=== PATIENT | female | born 1950 | race African-American/Black ===

== ENCOUNTER 2016-08-17 01:10 | Inpatient (IN) | payer MEDICARE, MEDICAID ==
[~2016-08-17] VITALS: Ht 162.6 cm; Wt 112.0 kg
[~2016-08-17 01:10] MED LIST: AMLO10TA80 PO; ANAS1TAB7 PO; ASPI-1159 PO; ATOR20TA PO; ATOR20TA65 PO; BENA40TA3 PO; BUDE6HFA IH; CALC-30 PO; CHOL500010 PO; CINN500C5 PO; CLON0.2T PO; CYAN100086 IM; CYCL30DR EACHEYE; DOCU-150 PO; DOXA2TAB2 PO; FLUT16SP15 NS; GLIP5TAB12 PO; HYDR12.54 PO; HYDR25SU11 RC; LACT10SO PO; LISI1TAB11 PO; LORA10TA7 PO; MECL12.584 PO; METF500T4 PO; MONT10TA24 PO; MULT-1146 PO; OMEG10002 PO; OMEP20CA10 PO; P20 PO; PAZEO OP; PREG50CA PO; PROM6.25 PO; SIMV20TA6 PO; TRAM50TA3 PO
[2016-08-17] MEDS ORDERED: SODIUM CHLORIDE 0.9% 1,000 ML IV ONE (03:21)
[2016-08-17 03:44] LABS: HEMATOCRIT. 36.9 % (36.0-48.0); HEMOGLOBIN. 11.9 g/dL (12.0-16.0); MEAN CORPUSCULAR HEMOGLOBIN 28.6 pg (28.0-32.0); MEAN PLATELET VOLUME 8.7 fl (7.4-10.4); PLATELET 278 x1000/uL (130-400); RED BLOOD CELL COUNT 4.15 mill/uL (4.2-5.4); RED CELL DISTRIBUTION WIDTH 15.9 % (11.6-14.6)
[2016-08-17 03:50] LABS: INR 1.1; PROTHROMBIN TIME 11.7 sec
[2016-08-17 04:00] LABS: CARBON DIOXIDE 31 mEq/L (21-32); CHLORIDE 95 mEq/L (98-107); TROPONIN I < 0.02 ng/mL (0.00-0.04)
[2016-08-17 04:01] LABS: PLATELET ESTIMATE NORMAL
[2016-08-17 08:00] VITALS: BP 64/30
[2016-08-17] MEDS ORDERED: IPRATROPIUM/ALBUTEROL 0.5-3(2.5)MG/3ML NEB HHN PRN (09:45)
[2016-08-17] MEDS: SODIUM CHLORIDE 0.9% 1,000 ML IV SCH ×2 (10:18→18:05)
[2016-08-17] MEDS: PANTOPRAZOLE SODIUM 40 MG/VIAL IV SCH (10:36)
[2016-08-17 11:00] VITALS: BP 109/58
[2016-08-17] MEDS: ONDANSETRON HCL 4MG/2ML VIAL IV PRN (11:45)
[2016-08-17 12:00] VITALS: BP 115/56
[2016-08-17 16:00] VITALS: BP 83/62
[2016-08-17] MEDS: MONTELUKAST SODIUM 10MG TABLET PO SCH (18:04)
[2016-08-17 18:20] LABS: PHOSPHORUS 4.7 mg/dL (2.5-4.9)
[2016-08-17 20:00] VITALS: BP 83/46
[2016-08-17 22:00] VITALS: BP 94/49
[2016-08-18] VITALS: BP 103/59
[2016-08-18 04:00] VITALS: BP 101/62
[2016-08-18 05:38] LABS: BASOPHILS % 1.1 % (0.0-2.0); EOSINOPHILS % 4.6 % (0.0-5.0); HEMATOCRIT. 31.7 % (36.0-48.0); HEMOGLOBIN. 10.1 g/dL (12.0-16.0); LYMPHOCYTES % 39.2 % (20.0-50.0); MEAN CORPUSCULAR HEMOGLOBIN 28.7 pg (28.0-32.0); MEAN CORPUSCULAR VOLUME 90.1 fL (81.0-99.0); MEAN PLATELET VOLUME 8.7 fl (7.4-10.4); MONOCYTES % 10.4 % (2.0-8.0); NEUTROPHILS % 44.7 % (40.0-76.0); PLATELET 242 x1000/uL (130-400); RED BLOOD CELL COUNT 3.52 mill/uL (4.2-5.4); RED CELL DISTRIBUTION WIDTH 16.2 % (11.6-14.6)
[2016-08-18] MEDS: SODIUM CHLORIDE 0.9% 1,000 ML IV SCH ×3 (06:42→16:59)
[2016-08-18] MEDS ORDERED: DEXTROSE 50% WATER 50ML SYRINGE IV PRN (07:30)
[2016-08-18] MEDS: INSULIN LISPRO 100 UNITS/ML SUBCUT SCH ×4 (07:40→21:45)
[2016-08-18] MEDS: BLOOD SUGAR DIAGNOSTIC STRIP TEST SCH ×3 (07:40→20:43)
[2016-08-18 08:00] VITALS: BP 108/62
[2016-08-18] MEDS: ONDANSETRON HCL 4MG/2ML VIAL IV PRN ×2 (08:38→21:52)
[2016-08-18] MEDS: PANTOPRAZOLE SODIUM 40 MG/VIAL IV SCH (08:38)
[2016-08-18] MEDS: ASPIRIN 81MG EC TABLET PO SCH (08:39)
[2016-08-18 08:49] LABS: CARBON DIOXIDE 29 mEq/L (21-32)
[2016-08-18 08:54] LABS: CHLORIDE 108 mEq/L (98-107)
[2016-08-18 12:00] VITALS: BP 101/59
[2016-08-18] MEDS: MEGESTROL ACETATE 400 MG/10 ML UDC PO SCH (14:54)
[2016-08-18 16:00] VITALS: BP 115/69
[2016-08-18] MEDS: MONTELUKAST SODIUM 10MG TABLET PO SCH (16:51)
[2016-08-18 20:00] VITALS: BP 98/50
[2016-08-18] MEDS: ACETAMINOPHEN 325MG TABLET PO PRN ×2 (21:44→22:09)
[2016-08-19] VITALS: BP 111/58
[2016-08-19] MEDS: SODIUM CHLORIDE 0.9% 1,000 ML IV SCH ×3 (01:31→19:57)
[2016-08-19 04:00] VITALS: BP 109/62
[2016-08-19] MEDS: BLOOD SUGAR DIAGNOSTIC STRIP TEST SCH ×4 (05:57→20:36)
[2016-08-19] MEDS: INSULIN LISPRO 100 UNITS/ML SUBCUT SCH ×4 (05:57→20:36)
[2016-08-19] MEDS: PANTOPRAZOLE SODIUM 40 MG/VIAL IV SCH (08:41)
[2016-08-19] MEDS: MEGESTROL ACETATE 400 MG/10 ML UDC PO SCH (08:41)
[2016-08-19] MEDS: ASPIRIN 81MG EC TABLET PO SCH (08:41)
[2016-08-19] MEDS: ONDANSETRON HCL 4MG/2ML VIAL IV PRN (08:41)
[2016-08-19 12:00] VITALS: BP 109/71
[2016-08-19 16:00] VITALS: BP 122/92
[2016-08-19] MEDS: MONTELUKAST SODIUM 10MG TABLET PO SCH (17:59)
[2016-08-19 20:00] VITALS: BP 106/60
[2016-08-20 00:09] VITALS: BP 100/61
[2016-08-20 04:00] VITALS: BP 111/75
[2016-08-20] MEDS: SODIUM CHLORIDE 0.9% 1,000 ML IV SCH ×2 (04:31→13:04)
[2016-08-20] MEDS: BLOOD SUGAR DIAGNOSTIC STRIP TEST SCH ×5 (06:26→20:32)
[2016-08-20] MEDS: INSULIN LISPRO 100 UNITS/ML SUBCUT SCH ×4 (06:49→20:32)
[2016-08-20 08:00] VITALS: BP 100/59
[2016-08-20] MEDS: PANTOPRAZOLE SODIUM 40 MG/VIAL IV SCH (09:03)
[2016-08-20] MEDS: ONDANSETRON HCL 4MG/2ML VIAL IV PRN ×2 (09:03→15:07)
[2016-08-20] MEDS: MEGESTROL ACETATE 400 MG/10 ML UDC PO SCH (09:03)
[2016-08-20] MEDS: ASPIRIN 81MG EC TABLET PO SCH (09:03)
[2016-08-20 12:00] VITALS: BP 124/72
[2016-08-20] MEDS: DEXT 5%/0.45% NACL 1000ML 1,000 ML IV SCH (15:01)
[2016-08-20 16:00] VITALS: BP 104/66
[2016-08-20] MEDS: MONTELUKAST SODIUM 10MG TABLET PO SCH (16:56)
[2016-08-20 20:00] VITALS: BP 100/66
[2016-08-21] VITALS: BP 120/80
[2016-08-21 04:00] VITALS: BP 102/61
[2016-08-21] MEDS: INSULIN LISPRO 100 UNITS/ML SUBCUT SCH ×4 (06:49→21:33)
[2016-08-21] MEDS: BLOOD SUGAR DIAGNOSTIC STRIP TEST SCH ×4 (06:49→21:31)
[2016-08-21 07:09] LABS: BASOPHILS % 1.8 % (0.0-2.0); EOSINOPHILS % 4.2 % (0.0-5.0); HEMATOCRIT. 32.2 % (36.0-48.0); HEMOGLOBIN. 10.3 g/dL (12.0-16.0); LYMPHOCYTES % 39.3 % (20.0-50.0); MEAN CORPUSCULAR HEMOGLOBIN 28.6 pg (28.0-32.0); MONOCYTES % 8.1 % (2.0-8.0); NEUTROPHILS % 46.6 % (40.0-76.0); PLATELET 290 x1000/uL (130-400); RED BLOOD CELL COUNT 3.62 mill/uL (4.2-5.4); RED CELL DISTRIBUTION WIDTH 16.1 % (11.6-14.6)
[2016-08-21 08:00] VITALS: BP 104/64
[2016-08-21 08:11] LABS: CARBON DIOXIDE 26 mEq/L (21-32); CHLORIDE 110 mEq/L (98-107); PHOSPHORUS 2.5 mg/dL (2.5-4.9)
[2016-08-21] MEDS: PANTOPRAZOLE SODIUM 40 MG/VIAL IV SCH (08:17)
[2016-08-21] MEDS: MEGESTROL ACETATE 400 MG/10 ML UDC PO SCH (08:17)
[2016-08-21] MEDS: ONDANSETRON HCL 4MG/2ML VIAL IV PRN (08:18)
[2016-08-21] MEDS: ASPIRIN 81MG EC TABLET PO SCH (08:18)
[2016-08-21] MEDS ORDERED: POTASSIUM CHLORIDE 20MEQ TABLET SR PO NR ×2 (08:45→15:45)
[2016-08-21 08:55] LABS: CLARITY URINE CLEAR (CLEAR); COLOR URINE YELLOW (YELLOW); GLUCOSE URINE NEGATIVE (NEGATIVE); KETONES URINE NEGATIVE (NEGATIVE); LEUKOCYTE ESTERASE URINE NEGATIVE (NEGATIVE); NITRITE URINE NEGATIVE (NEGATIVE); OCCULT BLOOD URINE NEGATIVE (NEGATIVE); PROTEIN URINE NEGATIVE (NEGATIVE); SPECIFIC GRAVITY URINE 1.006 (1.005-1.030)
[2016-08-21] MEDS ORDERED: MAGNESIUM SULFATE 3 GM in DEXT 5% WATER 96 ML IV NR ×2 (09:00→10:00)
[2016-08-21 12:00] VITALS: BP 98/62
[2016-08-21 15:53] VITALS: BP 120/86
[2016-08-21] MEDS: MONTELUKAST SODIUM 10MG TABLET PO SCH (18:12)
[2016-08-21] MEDS: DEXT 5%/0.45% NACL 1000ML 1,000 ML IV SCH (19:51)
[2016-08-21 20:00] VITALS: BP 100/62
[2016-08-22] VITALS (7 sets, daily range): BP systolic 101–119; BP diastolic 60–75
[2016-08-22] MEDS: BLOOD SUGAR DIAGNOSTIC STRIP TEST SCH ×3 (06:25→17:59)
[2016-08-22] MEDS: INSULIN LISPRO 100 UNITS/ML SUBCUT SCH ×3 (06:28→17:40)
[2016-08-22 07:45] LABS: BASOPHILS % 2.2 % (0.0-2.0); EOSINOPHILS % 3.3 % (0.0-5.0); HEMATOCRIT. 35.7 % (36.0-48.0); HEMOGLOBIN. 11.3 g/dL (12.0-16.0); MEAN CORPUSCULAR HEMOGLOBIN 28.7 pg (28.0-32.0); MEAN CORPUSCULAR VOLUME 90.5 fL (81.0-99.0); MONOCYTES % 6.5 % (2.0-8.0); PLATELET 287 x1000/uL (130-400); RED BLOOD CELL COUNT 3.94 mill/uL (4.2-5.4); RED CELL DISTRIBUTION WIDTH 16.2 % (11.6-14.6)
[2016-08-22 07:47] LABS: CARBON DIOXIDE 26 mEq/L (21-32); CHLORIDE 111 mEq/L (98-107)
[2016-08-22] MEDS: MEGESTROL ACETATE 400 MG/10 ML UDC PO SCH (08:28)
[2016-08-22] MEDS: ASPIRIN 81MG EC TABLET PO SCH (08:28)
[2016-08-22] MEDS: PANTOPRAZOLE SODIUM 40 MG/VIAL IV SCH (08:28)
[2016-08-22] MEDS ORDERED: MAGNESIUM 2 G PREMIX 50 ML IV SCH (10:00)
[2016-08-22] MEDS: MONTELUKAST SODIUM 10MG TABLET PO SCH (18:44)
[2016-08-22] MEDS: DEXT 5%/0.45% NACL 1000ML 1,000 ML IV SCH (18:45)
== END 2016-08-22 21:40 | DRG 682 ==
LOC: ER 01:21 → 8WST 06:06 → EDBEDREQ 06:09 → EDBEDREQSVC 06:09 → EDBEDREQTM 06:09 → ENRESERV 07:08
PROVIDERS: ADMIT Hospitalist; ATTEND Hospitalist
DX: N17.0 Acute kidney failure with tubular necrosis (principal); J96.00 Acute respiratory failure, unspecified whether with hypoxia or hypercapnia; C77.3 Secondary and unspecified malignant neoplasm of axilla and upper limb lymph nodes; C77.1 Secondary and unspecified malignant neoplasm of intrathoracic lymph nodes; Z68.41 Body mass index [BMI] 40.0-44.9, adult; I95.9 Hypotension, unspecified; E86.0 Dehydration; E11.9 Type 2 diabetes mellitus without complications; K21.9 Gastro-esophageal reflux disease without esophagitis; E66.01 Morbid (severe) obesity due to excess calories; E78.00 Pure hypercholesterolemia, unspecified; J44.9 Chronic obstructive pulmonary disease, unspecified; I10 Essential (primary) hypertension; J45.909 Unspecified asthma, uncomplicated; D64.9 Anemia, unspecified; E83.42 Hypomagnesemia; Z85.3 Personal history of malignant neoplasm of breast; Z88.0 Allergy status to penicillin; Z88.1 Allergy status to other antibiotic agents; Z79.899 Other long term (current) drug therapy; Z79.82 Long term (current) use of aspirin; Z90.12 Acquired absence of left breast and nipple; Z87.891 Personal history of nicotine dependence
CPT/HCPCS: 36415; 71010; 74176; 76770; 80048; 80053; 81003; 82962; 83605; 83690; 83735; 83970; 84100; 84484; 85025; 85610; 87040; 93005; 93970; 96360; 96361; 99291; A6261; C1893; C9113; J1815; J2405; J3475; J3490; J7030; J7060; J7070